=== PATIENT | female | born 1965 ===

== ENCOUNTER 2021-02-13 11:11 | Outpatient (CLI) | payer OTHER | END 2021-02-13 12:59 | disposition home or self-care (01) | LOC: SONOGRAMA 11:11 | PROVIDERS: ATTEND Pathology Anatomic Pathology & Clinical Pathology | DX: E04.2 Nontoxic multinodular goiter (principal); D34 Benign neoplasm of thyroid gland; E06.5 Other chronic thyroiditis ==